=== PATIENT | male | born 1960 | race Caucasian/White ===

== ENCOUNTER → 2018-01-07 06:41 | Outpatient (CLI) | payer BC, SELFPAY ==
--- NOTE | 2018-01-07 11:06 | NEURO ---
NCS and/or EMG Patient Report Ordering Doctor: Wade Arce Jr. DATE OF SERVICE: 01/07/18 This is a bilateral upper extremity nerve conduction study and a right upper extremity EMG performed on this 57-year-old male with hand numbness tingling and pain worse on the right side for approximately 6 months or more. There is no history of neck pain however he does perform repetitive heavy lifting at work. Bilateral upper extremity sensory and motor nerve conduction studies are performed demonstrating moderate prolongation of the left median motor and sensory distal latencies and severe prolongation of the right median motor and sensory distal latencies. The right side also demonstrates mild reduction in amplitude but conduction velocities are normal. The ulnar motor and sensory and radial sensory sponsors bilaterally are preserved. The median F-wave latencies on the right are prolonged to the ulnar F wave latencies bilaterally are normal. Right upper extremity needle electromyography is performed. Muscles evaluated included the first dorsal interosseous, abductor pollicis brevis, brachioradialis, biceps, triceps and deltoid muscles. The abductor pollicis brevis muscle did demonstrate increased amplitude but abnormal insertional activity was not seen. All other muscles demonstrated normal insertional activity with absence of pathologic spontaneous activity. Motor unit potential recruitment pattern and amplitude was normal in all muscles tested. Impression: Abnormal elective his like study of the upper extremities consistent with carpal tunnel syndrome bilaterally, severe on the right side and moderate on the left side
== END ==
PROVIDERS: Family Provider Family Medicine; PCP Family Medicine; Referring Provider Family Medicine; Visit Provider Family Medicine
DX: G56.01 Carpal tunnel syndrome, right upper limb (principal)
CPT/HCPCS: 95886; 95911

== ENCOUNTER 2020-06-27 09:20 | Emergency (ER) | payer BC, SELFPAY ==
[2020-06-27 09:21] VITALS: BP 142/81; PULSE 110; RESP 18; TEMP 36.3; O2SAT 94; BMI 30.9
--- NOTE | 2020-06-27 09:31 | RAD_ITS ---
STUDY: X-RAY CHEST REASON FOR EXAM: Male, 59 years old. Cough TECHNIQUE: Single AP portable view of the chest. COMPARISON: None. FINDINGS: EKG electrodes are seen. There is elevation of the right hemidiaphragm. Minimal increased markings at the lung bases slightly more prominent at the right lung base suggestive of atelectasis and/or early infiltrate. There is no demonstrated pleural abnormality. Normal size heart. Normal mediastinum and caroline. Normal visualized pulmonary arteries. Normal visualized aortic arch and descending thoracic aorta. Normal visualized thoracic spine. Normal visualized ribs, clavicles, and shoulders. There is no demonstrated abnormality of the visualized soft tissue structures of the upper abdomen. RAD/Chest 1 View (Portable) IMPRESSION: Mild increased markings at the lung bases slightly more prominent on the right side suggestive of mild bibasilar atelectasis and/or early infiltrates. Electronically Signed: Yohannes Kaminski MD at 10:23 EDT , Service support ,
--- NOTE | 2020-06-27 09:32 | ED.DCSUM_ITS ---
History of Present Illness Chief Complaint: Cough Informant: Patient Onset: Days Context: Sudden Onset Timing: Intermittent Quality: Upper respiratory infectious symptoms and loss of taste Location: Respiratory Current Severity: Mild Maximum Severity: Moderate Worsened by: Activity Relieved by: Nothing Associated Symptoms: Nausea and vomiting Narrative: Is a 59-year-old male with no significant past medical history on no medication who does not smoke and presents with upper respiratory symptoms that initially started June 19. He states he had congestion and cough for a couple of days with temperature of 99+. He states he felt better for couple days. Last several days he has had mild headache, fever, runny nose, congestion and loss of taste and smell. Patient's was diagnosed with Covid on June 18. He now reports because of increasing respiratory symptoms and dyspnea exertion. He also reports nausea and vomiting. He does feel thirsty and dry mouth. He denies anginal type symptoms. He denies diarrhea. He denies urologic symptoms. He denies any neuro symptoms other than headache and at times feeling foggy . He did notice a rash right shoulder region. He denies discoloration of his fingers or toes. Prior similar symptoms: No Recent Illness/Hospitalization: No - Past Medical History (1) No significant past medical history Status: Acute Past Medical History - Allergies and Home Meds Allergies/Adverse Reactions: Allergies No Known Allergies Allergy (Verified 06/27/20 09:20) Primary Care Physician: Wade Arce III, MD [Primary Care Provider] - Prior records reviewed: Yes Past Medical History: None Surgical History: no surgical history Lives: Spouse/ Significant Other Smoking Status: Never smoker Alcohol: Rare Drugs: None Review of Systems General: Reports: Chills, Fever, Malaise. Denies: Subjective, Sweats Eyes: Denies: Visual changes - bilaterally, Blurred Vision - bilaterally, Diplopia ENT: Reports: Rhinorrhea, Sore throat, - - Of taste/smell. Denies: Bilateral ear pain Cardiovascular: Denies: Chest pain, Palpitations Respiratory: Reports: Dyspnea, Cough, Dyspnea on exertion. Denies: Sputum, Orthopnea, Paroxysmal nocturnal dyspnea Gastrointestinal: Reports: Abdominal pain, Nausea, Vomiting. Denies: Diarrhea, Melena, Hematochezia Genitourinary: Denies: Dysuria, Hematuria, Frequency Musculoskeletal: Reports: Myalgias, Arthralgias. Denies: Neck pain, Back pain, Swelling, Extremity Pain Skin: Reports: Rash. Denies: Abscess, Abrasions, Wounds Neurological: Reports: Headache. Denies: Weakness, Parasthesia, Numbness Endocrine: Denies: Polyuria, Polydipsia Hematologic: Denies: Easy bruising, Easy bleeding Physical Exam Vital Signs/Narrative: Vital Signs Temp Pulse Resp BP Pulse Ox 06/27/20 09:21 97.3 F L 110 H 18 142/81 H 94 Inital Vital Signs reviewed: Yes General: Well nourished, Well developed, No Acute Distress - Appears ill. Eyes: Perrl, EOMI. Negative for: Pale conjunctiva, Scleral icterus ENT: No rhinorrhea, Dry mucous membranes Neck: Supple, Nontender, No lymphadenopathy, No JVD Cardiovascular: Regular rhythm, No murmurs, Normal S1, Normal S2, Tachycardia Respiratory: No distress, Chest nontender, Rales Abdomen: Soft, Nontender, Nondistended, Normal bowel sounds, No masses Back: Nontender, Normal Inspection Extremities: Nontender, No edema Skin: Normal color, No Trauma, Rash - Has folliculitis.. Negative for: Cyanosi s, Diaphoresis, Jaundice Neurological: Alert, Oriented x3, Cranial nerves II-XII grossly intact, Normal Strength, Normal Sensation Psychological: Normal affect, Normal Mood Diagnostic/Tx/Re-eval Chest X-Ray - ED: 1 View, Read by ED Physician - Interpreted by me at 0957. There is slight increased markings which may represent early infiltrate versus atelectasis. Cardiac size and silhouette is normal. Mediastinum is unremarkable. Osseous structures are unremarkable. 06/27/20 09:31 Chest 1 View (Portable) [RAD] Stat - Medical Decision Making With history of exposure to who was diagnosed with Covid and symptoms consistent with Covid patient was placed in Covid isolation. Because he reports nausea and vomiting BMP was obtained to assess anion gap and electrolytes as well as renal function. Covid test was obtained to confirm diagnosis. Patient's finger pulse ox reveals reading of 90%. Will obtain chest x-ray since there is rales to determine if he has Covid pneumonia and if he does we will treat with Decadron. 1 L of normal saline was ordered since he appears dehydrated. Patient did not desaturate with ambulation. Review of orders revealed that the initial Covid test was canceled. Clinically patient has Covid even if his Covid test is negative he has Covid and would presume the test is a false negative. ED Disposition - Plan for ED Patient: Disposition: Home or Assisted Living Diagnosis: Pneumonia due to COVID-19 virus, Nausea and vomiting, Mild dehydration, Sinus tachycardia seen on alarm security or surveillance monitor Instructions: Coronavirus Disease 2019 (COVID-19): Caring for Yourself or Others, ED Vomiting (Adult) Prescriptions: Dexamethasone [Decadron] 6 mg PO DAILY 5 Days #5 tablet Transmission Status: Pending to [id number] Ondansetron [Zofran Odt] 4 mg PO Q8H PRN PRN #10 tablet PRN Reason: Nausea Transmission Status: Pending to [id number] Referrals: Wade Arce III, MD [Primary Care Provider] - As Needed Additional Instructions: You may be ill for another 1+ weeks. You may have residual symptoms for longer. You need to self quarantine for an additional 7 days.
[2020-06-27 10:03] LABS: Absolute Lymphocyte Count 0.46 X10^3/uL (0.83-4.51); Absolute Neutrophil Count 4.6 X10^3/uL (2.0-7.7); Basophil# 0.01 X10^3/uL; Basophil% 0.2 % (0-1); Hematocrit 47.6 % (40-54); Hemoglobin 16.1 g/dL (13.0-16.5); Lymphocyte # 0.46 X10^3/ul (0.83-4.51); Lymphocyte % 8.2 % (19-41); Mean Corp Hgb Conc 33.8 g/dL (32-36); Mean Corpuscular Hgb 28.8 pg (27.0-32.0); Mean Platelet Vol. 9.9 fl (6.2-12.0); Monocyte# 0.54 X10^3/uL; Monocyte% 9.7 % (0-10); NRBC Flagged by Analyzer 0 % (0-5); Neutrophil # 4.55 X10^3/uL (2.7-7.7); Neutrophil % 81.4 % (47-70); POSITIVE DIFFERENTIAL YES; Platelet Count 167 K/mm3 (150-450); RBC Distribution Width CV 13.1 % (11.6-14.6); RBC Distribution Width SD 40.5 fl (35.1-43.9); White Blood Count 5.6 K/mm3 (4.4-11.0)
[2020-06-27 10:04] LABS: Differential Indicated SCAN CRITERIA MET
[2020-06-27 10:16] LABS: Anion Gap 8 (5-15); BUN 14 mg/dL (7-18); BUN/Creat Ratio 14.8 RATIO (10-20); Chloride 103 mmol/L (98-107); Creatinine, Serum 0.95 mg/dL (0.70-1.30); EST Glomerular Filtration Rate 86 mL/min (>60); Est Glom Filt Rate - Afr Amer 105 mL/min (>60); Estimated Creatinine Clearance 78.28 ml/min; Glucose 107 mg/dL (74-106); Potassium 3.7 mmol/L (3.5-5.1); Sodium Level 138 mmol/L (136-145)
[2020-06-27] MEDS: 0.9% Normal Saline 1,000 ML 1000 ML IV (10:18)
[2020-06-27 10:38] VITALS: O2SAT 94
[2020-06-27] MEDS: dexAMETHasone 10 MG/ML Vial IV (11:08)
[2020-06-27 11:12] VITALS: BP 134/78; PULSE 87; RESP 16; TEMP 36.4; O2SAT 96
== END 2020-06-27 11:14 | disposition home or self-care (01) ==
LOC: ED 10:41
PROVIDERS: Emergency Provider Emergency Medicine; PCP Family Medicine
DX: U07.1 COVID-19 (principal); J12.82 Pneumonia due to coronavirus disease 2019; R11.2 Nausea with vomiting, unspecified; E86.0 Dehydration; R00.0 Tachycardia, unspecified
CPT/HCPCS: 71045; 80048; 85025; 87426; 96374; 99284; J7030; A4216

== ENCOUNTER 2021-02-25 10:28 | Emergency (ER) | payer BC, SELFPAY ==
[2021-02-25 10:29] VITALS: BP 164/92; PULSE 94; RESP 18; TEMP 36.2; O2SAT 97; BMI 30.4
--- NOTE | 2021-02-25 10:55 | RAD_ITS ---
HISTORY: fall, pain right ribs and lower back. TECHNIQUE: XR Ribs Unilateral W/ PA Chest Min 3 Views. # of images incl. paperwork: 5. COMPARISON: 06/27/2020. FINDINGS: CARDIOMEDIASTINAL BORDERS: Cardiac silhouette not enlarged.Mediastinal contour unremarkable. LUNGS: Radiographically clear. PLEURA: No pleural effusion or pneumothorax. OSSEOUS STRUCTURES: No acute displaced rib fracture. RAD/Ribs Uni Min 3V w/PA Chest IMPRESSION: No acute abnormality identified. at 1111 Reported and signed by: Jeanie Campbell MD Electronically Signed: Jeanie Campbell MD at 11:10 EST Tel , Service support ,
--- NOTE | 2021-02-25 10:55 | EX.ED.DYSGE1 ---
HPI History of Present Illness Chief Complaint: Fall Narrative Narrative: Patient presenting for evaluation after a fall down stairs. Patient reports that 3 days ago he suffered a mechanical fall down a full flight of stairs. He states that he tumbled down around 14 stairs denies hitting his head or loss of consciousness he is not on any sort of anticoagulants. Patient reports that he was pretty banged up, has some bruising on his left foot but has been able to ambulate, but has noticed continuous pain over his right posterior ribs that is worse with palpation movement and deep breathing. Patient denies any hematuria. Denies any hemoptysis. Pain is sharp. Better with rest. Review of systems otherwise negative. PFSH PFSH Medical History no medical history Home Medications lidocaine [Lidoderm] 1 patch TOPICAL DAILY #15 ea 02/25/21 [Rx Last Taken Unknown] Allergy/AdvReac Type Severity Reaction Status Date / Time No Known Allergies Allergy Verified 02/25/21 10:31 Social History Smoking Status: Never smoker ROS ROS ED Constitutional Constitutional ED: Denies chills or fever(s) ENT ENT ED: Denies rhinorrhea Cardiovascular Cardiovascular: Denies chest pain Respiratory/Chest Respiratory/Chest: Reports other Details: Right posterior rib pain Gastrointestinal Gastrointestinal: Denies abdominal pain, diarrhea, nausea or vomiting Genitourinary Genitourinary ED: Denies dysuria or hematuria Musculoskeletal Musculoskeletal: Reports other Details: Left foot pain Integumentary Denies rash Neurologic Neurologic: Denies paresthesias or weakness Psychiatric Psychiatric: Denies depression Endocrine Endocrinology: Denies fatigue Allergic/Immunologic Allergic/Immunologic ED: Denies urticaria EXAM Physical Exam Const Vital Signs: 02/25/21 10:29 02/25/21 10:34 Temperature 97.1 F L Temperature Source Temporal Pulse Rate 94 Respiratory Rate 18 Respiratory Effort Normal Non-Labored Blood Pressure 164/92 H Blood Pressure Mean 116 Pulse Ox 97 Oxygen Delivery Method Room Air Room Air Positive well nourished and well developed Constitutional Narrative: Airway patent, breath sounds equal bilateral, 2+ radial pulses bilaterally symmetric GCS 15 out of 15. General Appearance ED: well developed and NAD HEENT Reports moist mucous membranes Negative for trauma or tenderness Eyes EOMs intact bilaterally Neck no lymphadenopathy, supple and no JVD Neck Narrative: No midline tenderness is noted, no step-offs Chest Wall Chest Narrative: Right posterior chest does have some bruising, there is tenderness to palpation over the inferior portion of the thoracic wall. No signs of abnormal chest excursion no crepitus no evidence of flail chest. Resp normal respiratory effort and clear to auscultation bilaterally Cardio regular rate, regular rhythm, no murmurs and peripheral pulses 2+ throughout GI normal to inspection, nondistended, normoactive bowel sounds, non-tender and no masses Palpation: soft Back/Spine normal to inspection Extremity Extremity Narrative: Bruising noted over the patient's fourth and fifth toes on the left foot, normal range of motion of the toes and foot, no pain of the ankle. Normal distal sensation and pulses. Neuro oriented x3 and no sensory deficits noted Sensorium / Orientation: alert Motor Exam: strength 5/5 throughout Psych mental status grossly normal Skin no rashes or lesions noted MDM MDM MDM Narrative Medical decision making narrative: Patient presented secondary to a fall. He does have some bruising his foot but is easily able to bear weight, no radiographs ordered. Radiographs of the ribs were obtained and per my personal review as well as radiology are noted to be negative. Patient at this point likely has rib contusions he will be provided with a incentive spirometer. Patient was educated on signs symptoms which to return. To be discharged with a course of lidocaine patches. Patient was discharged in stable condition. Radiography Diagnostic Testing: Clinical Impression(s) from Imaging Studies Ribs w/Chest X-Ray 02/25/21 10:55 IMPRESSION: No acute abnormality identified. at 1111 Reported and signed by: Jeanie Campbell MD Electronically Signed: Jeanie Campbell MD at 11:10 EST Tel , Service support , Discharge Plan Triage Chief Complaint: Fall ED Provider: Malik Latif Dx/Rx/DC Orders Clinical Impression: Contusion of rib on right side Instructions: ED Chest Wall Contusion Prescriptions: New lidocaine [Lidoderm] 5 % adhesive patch,medicated 1 patch topical DAILY Qty: 15 RF: 0 Primary Care Provider: Cosme Jimenez Referrals: Cosme Jimenez MD [Primary Care Provider] - As Needed Disposition Disposition: Home, Self Care
== END 2021-02-25 11:58 | disposition home or self-care (01) ==
PROVIDERS: Emergency Provider Emergency Medicine; PCP Family Medicine
DX: S20.211A Contusion of right front wall of thorax, initial encounter (principal); W10.9XXA Fall (on) (from) unspecified stairs and steps, initial encounter
CPT/HCPCS: 71101; 99282

== ENCOUNTER → 2021-08-29 | Outpatient (CLI) | payer BC, SELFPAY ==
--- NOTE | 2021-08-29 13:00 | CDU_ITS ---
Reason For Study: Visual disturbance Rt. Velocities/BP Lt. Velocities/BP Prox CCA 94.3/25.2 cm/sec. Prox CCA 122.9/26.1 cm/sec. Mid CCA 98.2/27.8 cm/sec. Mid CCA 121.1/27.9 cm/sec. Dist CCA 90.4/26.5 cm/sec. Dist CCA 121.1/37.1 cm/sec. Prox ICA 90/29.8 cm/sec. Prox ICA 84.6/29.8 cm/sec. Mid ICA 121.1/42.6 cm/sec. Mid ICA 99.2/35.3 cm/sec. Dist ICA 130.2/42.6 cm/sec. Dist ICA 113.8/42.6 cm/sec. Rt. ICA/CCA = 1.38. Lt. ICA/CCA = 0.94. Prox ECA 169.6/22.6 cm/sec. Prox ECA 128.4/22.5 cm/sec. Rt. Vert. 64.5/17 cm/sec. Lt. Vert. 43.2/12.4 cm/sec. Right Extracranial There is intimal thickening but no significant atherosclerotic plaque noted in the right common carotid artery. There is intimal thickening but no significant atherosclerotic plaque noted in the right internal carotid artery. There is intimal thickening but no significant atherosclerotic plaque noted in the right external carotid artery. Antegrade flow is noted in the right vertebral artery. Left Extracranial There is intimal thickening but no significant atherosclerotic plaque noted in the left common carotid artery. There is heterogeneous, smooth atherosclerotic plaque noted in the left internal carotid artery. There is intimal thickening but no significant atherosclerotic plaque noted in the left external carotid artery. Antegrade flow is noted in the left vertebral artery. Procedure Carotid Duplex [id number]. This is a Carotid Duplex examination using B-mode, color flow and specral Doppler. Exam performed in department. VL/Carotid Duplex Ultrasound Interpretation Summary Intimal thickening at the proximal right internal carotid artery with slightly increased velocity in the mid and distal internal carotid artery though not associated with any visib le plaque. Technically consistent with 50 to 69% stenosis. Less than 50% stenosis right external carotid artery Heterogenous plaque at the proximal left internal carotid artery with less than 50% stenosis Less than 50% stenosis left external carotid artery Patent and antegrade vertebral arteries bilaterally Ordering Physician: Jensen Griffith Referring Physician: Nathaniel Jimenez Performed By: Jenni Gould RVT
== END | disposition home or self-care (01) ==
LOC: CVS 12:57
PROVIDERS: PCP Family Medicine; Referring Provider Ophthalmology; Visit Provider Ophthalmology
DX: H53.15 Visual distortions of shape and size (principal); H53.121 Transient visual loss, right eye
CPT/HCPCS: 93880

== ENCOUNTER → 2023-03-12 | Outpatient (CLI) | payer BC, SELFPAY ==
--- NOTE | 2023-03-12 10:32 | MRI_ITS ---
STUDY: MRI BRAIN WITH AND WITHOUT CONTRAST (ATTENTION INTERNAL AUDITORY CANALS - I.A.C.''s) REASON FOR EXAM: Male, 62 years old. RINGING IN EARS, CONSTANT [id number], HAS HAD TRIGEMINAL NEURALGIA [id number], 19CC CLARISCAN LEFT EAR TINNITUS TECHNIQUE: Standardized multiplanar fat and water weighted pulse sequences were obtained. ml of 19cc clariscan contrast material was administered intravenously for the contrast portion of the examination. COMPARISON: None. FINDINGS: Normal bilateral temporal bones. Normal bilateral internal auditory canals. There is no demonstrated intracanalicular or cisternal vestibular schwannoma ( acoustic neuroma ). There is no enhancement of the bilateral VIIth or VIIIth cranial nerves. Normal bilateral cochlea, vestibules and semicircular canals. No demonstrated mastoid air cell opacification. No cerebellar pontine angle mass or cyst is present. Normal Meckel''s cave and nerve roots. No extra-axial mass is seen. No demonstrated Mondini''s malformation. There is mild cerebral atrophy with widening of the extra-axial spaces and ventricular dilatation. There are a limited number of small white matter hyperintensities, distributed throughout the deep white matter tracts of the cerebral hemispheres, consistent with mild chronic white matter ischemic changes. There is no evidence for recent intracranial ischemia or other cause of cytotoxic edema on diffusion weighted imaging (DWI). Normal T2* images of the brain without demonstrated susceptibility artifact. There is no demonstrated hemosiderin stain. There are no demyelinating plagues of the supratentorial brain, brainstem or cerebellum. There are no findings suspicious for multiple sclerosis (MS). Normal bilateral basal ganglia. Normal thalami. Normal flow voids within the major intracranial circulation suggesting patency by spin echo criteria. Normal venous enhancement. There is no enhancing intra-axial or extra-axial abnormality. There is no extra-axial fluid accumulation. Normal sella turcica, pituitary gland, infundibular stalk, optic chiasm and hypothalamus. Normal tectal plate and pineal gland. Normal midbrain, karl and medulla. Normal cerebellum. Normal basal cisterns. No demonstrated orbital abnormality, within the constraints of a routine brain study. Normal visualized paranasal sinuses. Normal calvarium and skull base. Normal visualized soft tissue structures. Normal visualized upper cervical spine. MRI/Brain W/WO Contrast IMPRESSION: 1. Normal unenhanced and enhanced MRI of the bilateral internal auditory canals (I.A.C''s). 2. No demonstrated mastoid air cell opacification. No cerebellar pontine angle mass or cyst is present. Normal Meckel''s cave and nerve roots. No extra-axial mass is seen. No demonstrated Mondini''s malformation. Electronically Signed: Rasheed Raphael MD at 15:14 EST ,
--- OUTSIDE RECORDS SUMMARY | 2023-03-12 10:46 | XMS RPT_ITS | CCD ---
Author Name Unknown Address [address] [facility] [address] [facility] [address] [place] [address] Organization [facility] Care Team Providers Care Offal Separator Name Role Phone SARA PAUL Unavailable Unavailable SARA PAUL Unavailable Unavailable Nathaniel Jimenez MD Primary Care Provider Medications Completed/Discontinued Medications Medication Drug Class(es) Dates Sig (Normalized) Sig (Original) sildenafil 50 mg oral tablet (1 source) Phosphodiesterase 5 Inhibitor Start: 11-02-2019 sildenafil (VIAGRA) 50 mg tablet use as needed 6 tablet 5 11/02/2019 Active Problems Active Problems Problem Classification Problem Date Documented Da te Episodic/Chronic Disorders of lipid metabolism (1 source) Hyperlipidemia; Translations: [Hyperlipidemia, unspecified] Onset: 10-17-2015 10-17-2015 Chronic Immunizations and screening for infectious disease (1 source) Vaccination needed; Translations: [Encounter for immunization] Episodic Other male genital disorders (1 source) Secondary erectile dysfunction; Translations: [Male erectile dysfunction, unspecified] Onset: 03-28-2018 03-28-2018 Chronic Other nervous system disorders (1 source) Carpal tunnel syndrome, bilateral upper limbs; Translations: [Carpal tunnel syndrome, bilateral upper limbs] Onset: 01-27-2018 Other nutritional; endocrine; and metabolic disorders (1 source) Obesity; Translations: [Other obesity due to excess calories] 10-25-2020 Chronic Past or Other Problems Problem Classification Problem Date Documented Da te Episodic/Chronic Other nutritional; endocrine; and metabolic disorders (1 source) Body mass index 25-29 - overweight; Translations: [Overweight] Onset: 06-12-2012 06-12-2012 Episodic Results Test Name Value Interpretation Reference Range Facil ity Encounters Encounter Date Encounter Type Care Provider Facility Start: 06-06-2021 End: 06-06-2021 Nursing evaluation of patient and report Mi Nurse Work Phone: [facility] [place] Procedures Date Procedure Procedure Detail Performing Clinician Start: 10-23-2020 Adult depression scr eening assessment Ny Nurse Work Phone: Start: 12-31-2016 Colonoscopy Ny Nurse Work Phone: Plan of Treatment Date Care Activity Detail Author Start: 12-31-2026 Colonoscopy COLONOSCOPY [facility] Start: 12-31-2026 COLORECTAL CANCER SCREENING COLORECTAL CANCER SCREENING [facility] Start: 10-29-2025 LIPID SCREEN LIPID SCREEN [facility] Start: 02-01-2024 PROSTATE CANCER SCRE ENING DISCUSSION PROSTATE CANCER SCREENING DISCUSSION [facility] Start: 10-30-2023 DIABETES SCREEN DIABETES SCREEN [facility] Start: 10-25-2021 COVID-19 VACCINE (1) COVID-19 VACCIN E (1) [facility] Immunizations Immunization Date Immunization Notes Care Provider Fa cility 06-06-2021 zoster vaccine recombinant Ny Nurse Work Phone: [facility] Work Phone: 03-13-2021 zoster vaccine recombinant Ny Nurse Work Phone: [facility] Work Phone: 07-17-2011 tetanus toxoid, redu montez diphtheria toxoid, and acellular pertussis vaccine, adsorbed Ny Nurse Work Phone: [facility] Payers Date Payer Category Payer Unknown [employer] BLUE CARD PPO OOS [id number] 2012-Present [phone] [id number] [place] [address] PPO [id number] Social History Date Type Detail Facility Start: 08-05-2013 Tobacco smoking stat us NHIS Never smoked tobacco [facility] History of tobacco use Cigarette Smoker C [facility] Start: 08-05-2013 End: 10-25-2020 Cigarettes smoked current (pack per day) - Reported 0.3 [facility] Start: 08-05-2013 Tobacco use and exposure Filemon r smokeless tobacco user [facility] History of tobacco use Chews Tobacco [facility] Start: 10-25-2020 Alcohol intake Current drinke r of alcohol (finding) [facility] Start: 10-23-2020 History SDOH Alcohol Frequency 3 [facility] Start: 10-23-2020 History SDOH Alcohol Std Drinks 2 [facility] Start: 10-25-2020 History SDOH Alcohol Comment 4-5 drinks on the weekend [facility] Start: 10-23-2020 History SDOH Social Connections Phone 5 [facility] Start: 10-23-2020 History SDOH Social Connections Jain 1 [facility] Start: 10-23-2020 History SDOH Physica l Activity MPS 4 [facility] Start: 10-23-2020 Education 14 [facility] Start: 1960 Sex Assigned At Male C [facility] Start: 05-13-2021 End: 05-23-2021 Exposure to SARS-CoV-2 (event) Not sure [facility] Progress note 06-06-2021 Note Date & Type Note Facility 06-06-2021 Note HNO ID: [id number] Author: Isabel Clark LPN Service: ? Author Type: ? Type: Progress Notes Filed: 06/06/2021 3:43 PM Note Text: Patient presents for Shingrix vaccine. Denies any problems at this time. Tolerated injection well. Isabel Clark LPN [facility] History of Present illness Narrative 06-06-2021 Isabel Clark LPN - 06/06/2021 3:42 PM EDT Note Date & Type Note Facility 06-06-2021 History of Presen t illness Narrative Patient presents for Shingrix vaccine. Denies any problems at this time. Tolerated injection well. Isabel Clark LPN documented in this encounter [facility] Progress note 03-13-2021 Note Date & Type Note Facility 03-13-2021 Note HNO ID: [id number] Author: Isabel Clark LPN Service: ? Author Type: ? Type: Progress Notes Filed: 03/13/2021 3:46 PM Note Text: Patient presents for Shingrix vaccine. Denies any problems at this time. Tolerated injection well. Isabel Clark LPN [facility] Progress note 12-30-2020 Note Date & Type Note Facility 12-30-2020 Note HNO ID: [id number] Author: Nancy Kenyon Population Health Navigator Service: ? Author Type: ? Type: Progress Notes Filed: 12/30/2020 3:34 PM Note Text: POPULATION HEALTH NAVIGATION OUTREACH Action/ I updated patient chart No care everywhere Contact made with patient or family member? NO Pt identified by name and : NO Outreach Outcome/Action PCP field updated Reason for Outreach Attribution: Provider Off-boarding Payer: Payor: JAVIER / Plan: BLUE CARD PPO OOS / Product Type: PPO / Care Gap Reviewed:: Reminder: Reminder note to check Health Maintenance for items below Health Maintenance items due: HIV SCREENING Never done SHINGRIX VACCINE(1 of 2) Never done Advanced Directives Completed: Have you ever planned for future healthcare decisions with a power of contracts attorney, living will, or advance directives? No. Please bring a copy to your next appointment or email to [email or web address] Referrals: N/A Message Sent to Practice: NO Navigation Signature: Nancy Kenyon Population Health Navigator December 30, 2020 3:33 PM [facility] Clinical Note 12-30-2020 Note Date & Type Note Facility 12-30-2020 Note Patient Outreach (NE TNAV) DIEGO MATUTE ([id number]) 1960 M Date Time Provider Department 12/30/20 NANCY KENYON During your visit today, we recorded the following information about you: Nancy Kenyon Population Health Navigator 12/30/2020 3:34 PM Signed POPULATION HEALTH NAVIGATION OUTREACH Action/ I updated patient chart No care everywhere Contact made with patient or family member? NO Pt identified by name and : NO Outreach Outcome/Action PCP field updated Reason for Outreach Attribution: Provider Off-boarding Payer: Payor: JAVIER / Plan: BLUE CARD PPO OOS / Product Type: PPO / Care Gap Reviewed:: Reminder: Reminder note to check Health Maintenance for items below Health Maintenance items due: HIV SCREENING Never done SHINGRIX VACCINE(1 of 2) Never done Advanced Directives Completed: Have you ever planned for future healthcare decisions with a power of contracts attorney, living will, or advance directives? No. Please bring a copy to your next appointment or email to [email or web address] Referrals: N/A Message Sent to Practice: NO Navigation Signature: Nancy Kenyon Population Health Navigator December 30, 2020 3:33 PM Allergies As of Date: 12/30/2020 (No Known Allergies) Date Reviewed: 10/25/2020 Reviewed by: Fidel Kc Ma - Fully Assessed Reason for Visit: Population Health Navigation Outreach [3910] Cmt: Offboarding Prescriptions as of 12/30/2020 - sildenafil (VIAGRA) 50 mg tablet use as needed Problem List As Of Date 12/30/2020 Noted Resolved Plantar fasciitis of right foot [M72.2] 06/12/2012 08/09/2014 Achilles tendinitis [M76.60] 06/12/2012 08/09/2014 Overweight (BMI 25.0-29.9) [E66.3] 06/12/2012 Tobacco abuse [Z72.0] 06/12/2012 10/17/2015 Hyperlipidemia LDL goal <130 [E78.5] 10/17/2015 Metatarsalgia of right foot [M77.41] 12/31/2017 11/02/2019 Cervical strain, acute, sequela [S16.1XXS] 12/31/2017 11/02/2019 Cervical radiculopathy [M54.12] 12/31/2017 11/02/2019 Carpal tunnel syndrome, right [G56.01] 12/31/2017 11/02/2019 Bilateral carpal tunnel syndrome [G56.03] 01/27/2018 11/02/2019 ED (erectile dysfunction) of organic origin [N5*03/28/2018 Class 1 obesity due to excess calories without * Encounter Status:Closed by KOSTAS POPULATION HEALTH NAVIGATORNANCY on 12/30/20 [facility] Progress note 10-25-2020 Note Date & Type Note Facility 10-25-2020 Note HNO ID: [id number] Author: Nathaniel Jimenez MD Service: ? Author Type: Physician Type: Progress Notes Filed: 10/25/2020 4:45 PM Note Text: Chief Complaint Patient presents with: transfering care from Dr. Yazmin KNAPP Diego Matute is a 59 year old male who presents here today for Above Complaints. No questions or concerns today. Has not had hospitalizations or ER visit since COVID infection in June. Has history of erectile dysfunction which has been treated with viagra 50 mg PRN. States he has not noticed much difference the last couple times he tried it. Has been able to be intimate with his without issues in the last few months. BP elevated on initial check. Normal in the past. Nervous about meeting a new physician today. Admits to drinking 2 cans of pop per day and drinking 4-5 beers on Saturday and Saturday. 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 Patient has not been vaccinated for COVID. Refusing today. Discussed risks and benefits of vaccination and risks if he does not get vaccinated. Past medical history, appointments, medications, allergies reviewed. Previous Medical History PAST MEDICAL HISTORY Diagnosis Date - Class 1 obesity due to excess calories without serious comorbidity with body mass index (BMI) of 31.0 to 31.9 in adult - History of COVID-19 06/2020 - Hyperlipidemia LDL goal <130 10/17/2015 - Other male erectile dysfunction - Tobacco abuse 06/12/2012 Previous Surgical History PAST SURGICAL HISTORY Procedure Laterality Date - COLONOSCOP W/ OR W/O BRSH SPEC 12/31/2016 repeat 10 years - EXTRACTION ERUPTED TOOTH [place] teeth - REVISE MEDIAN N/CARPAL TUNNEL SURG Bilateral 02/28/2018 Bilateral carpal tunnel release Family History FAMILY HISTORY Problem Relation Age of Onset - No Known Problems Mother - other (unknown) Father - No Known Problems Sister - Diabetes Maternal Grandmother - No Known Problems Maternal Grandfather - No Known Problems Paternal Grandmother - No Known Problems Paternal Grandfather - No Known Problems Daughter - No Known Problems Son Patient Allergies ALLERGIES No Known Allergies Current Medications Current Outpatient Medications on File Prior to Visit Medication Sig - sildenafil (VIAGRA) 50 mg tablet use as needed No current facility-administered medications on file prior to visit. Social History Social History Tobacco Use - Smoking status: Never Smoker - Smokeless tobacco: Former User Types: Chew Substance Use Topics - Alcohol use: Yes Alcohol/week: 10.0 standard drinks Types: 10 Cans of Beer (12oz) per week Comment: 4-5 drinks on the weekend - Drug use: No Review of Symptoms REVIEW OF SYSTEMS GENERAL: No weight loss, malaise or fevers HEENT: Negative for frequent or significant headaches, No changes in hearing or vision, no nose bleeds or other nasal problems NECK: Negative for lumps, goiter, pain and significant neck swelling RESPIRATORY: Negative for cough, hemoptysis, wheezing, COPD, dyspnea or shortness of breath CARDIOVASCULAR: Negative for chest pain, leg swelling, hypertension, CHF or palpitations GI: No nausea, vomiting, or diarrhea : No history of dysuria, frequency or incontinence, No difficulty urinating, nocturia > 1 time per night or hematuria MUSCULOSKELETAL: Negative for joint pain or swelling, back pain or muscle pain SKIN: lesion on right forehead above eyebrow that repeatedly bleeds. Increasing in size. EXAM: BP 150/96 Pulse 74 Resp 16 Ht 168.5 cm (5' 6.34 ) Wt 90.7 kg (200 lb) SpO2 97% BMI 31.95 kg/m? General Appearance: Well appearing, alert, in no acute distress, well-hydrated, well nourished.. Skin: raised skin colored lesion on right forehead with scabbing on superior edge. Possible BCC. Head: Normocephalic, no masses, lesions, tenderness or abnormalities. Eyes: Anicteric sclera. Pupils are equally round and reactive to light. Extraocular movements are intact. . Ears: External ears normal, canals clear. Neck: Supple, no adenopathy; thyroid symmetric, normal size, no bruits. Lungs: Lungs clear to auscultation. No wheezing, rhonchi, rales.. Heart: RRR without murmur, gallop, or rubs. No ectopy. Abdomen: Normal abdominal exam, Abdomen soft, non-tender. Bowel sounds normal. No masses, organomegaly. Extremities: No deformities, edema, skin discoloration, clubbing or cyanosis. Good capillary refill. Genital: deferred. Health Maintenance List HIV SCREENING due on 11/01/2020 SHINGRIX VACCINE(1 of 2) due on 11/01/2020 COVID-19 VACCINE(1) due on 10/25/2021 DTAP,TDAP,TD(2 - Td or Tdap) due on 07/16/2021 DEPRESSION SCREENING due on 10/23/2021 DIABETES SCREEN due on 01/31/2022 LIPID SCREEN due on 02/01/2024 PROSTATE CANCER SCREENING DISCUSSION due on 02/01/2024 COLORECTAL CANCER SCREENING due on 12/31/2026 HEPATITIS C SCREENING Completed MENINGOCOCCAL CONJUGATE Aged Out INFLUENZA Discontinu (more content not included)... [facility] History of Past illness Narrative 01-27-2018 Note Date & Type Note Facility documented as of this encounter (statuses as of 06/06/2021) [facility] Evaluation note Note Date & Type Note Facility documented in this encounter [facility] Summary Purpose Family History No Family History Records FoundNo Family History Records Found Advance Directives No Advanced Directives Records FoundDocuments on File Type Date Recorded Patient Machinist/Machine Builder Expl anation Advance Directive(s) 02/28/2018 7:13 AM Advance Directive(s) 02/04/2018 5:55 PM Advance Directive(s) 12/31/2016 2:24 PM Additional Source Comments (unrecognized sect ion and content) No Status Records FoundNo Status Records Found INFORMATION SOURCE (unrecogn ized section and content) DATE CREATED AUTHOR AUTHOR'S ORGANIZ ATION 06/08/2021 [facility] Source Comments (unrecognize d section and content) In the event this informatio n is protected by the Federal Confidentiality of Alcohol and Drug Abuse Patient Records regulations: The Federal rules restrict any use of the information to criminally investigate or prosecute any alcohol or drug abuse patient.[facility] Reason for Visit (unrecogniz ed section and content) Care Teams (unrecognized sec tion and content) FOR RECORDS PERTAINING TO PATIENTS WHO ARE OR HAVE BEEN ENROLLED IN A CHEMICAL DEPENDENCY/SUBSTANCEABUSE PROGRAM, SOME INFORMATION MAY BE OMITTED. This clinical summary was aggregated from multiple sources. Caution should be exercised in using it in the provision of clinical care. This summary normalizes information from multiple sources, and as a consequence, information in this document may materially change the coding, format and clinical context of patient data. In addition, data may be omitted in some cases. CLINICAL DECISIONS SHOULD BE BASED ON THE PRIMARY CLINICAL RECORDS. [facility]. provides no warranty or guarantee of the accuracy or completeness of information in this document.
[2023-03-12 10:58] LABS: CREATININE FINGERSTICK 1.2 mg/dL (0.70-1.30); EGFR FINGERSTICK > 60.0000 mL/min (>60)
== END | disposition home or self-care (01) ==
PROVIDERS: PCP Family Medicine; Referring Provider Otolaryngology; Visit Provider Otolaryngology
DX: H93.12 Tinnitus, left ear (principal)
CPT/HCPCS: 70553; A9575

== ENCOUNTER → 2024-12-12 | Outpatient (CLI) | payer BC, SELFPAY ==
--- OUTSIDE RECORDS SUMMARY | 2024-12-12 09:27 | XMS RPT_ITS | CCD ---
Author Organization [facility] Care Team Providers Care Clinical Specialist Vascular Name Role Phone SARA PAUL Unavailable Unavailable SARA PAUL Unavailable Unavailable Deja Jimenez MD Primary Care Provider Dr. Cosme Jimenez Primary Care Provider Dr. Fredi Arce Attending Provider Fredi Arce Attending Unavailable Cosme Jimenez Referring Unavailable Cosme Jimenez Primary Care Unavailable Fredi Arce Attending Unavailable Jensen Griffith Referring Unavailable Cosme Jimenez Primary Care Unavailable Jensen Griffith Referring Unavailable Jensen Griffith Attending Unavailable Cosme Jimenez Primary Care Unavailable Malik Latif Attending Unavailable Cosme Jimenez Primary Care Unavailable Cosme Jimenez Primary Care Unavailable Fredi Arce Attending Unavailable Podlogar MEDICAL CLAIMS PROCESSORAdela OLVERA Unavailable Medications Current Medications Medication Drug Class(es) Dates Sig (Normalized) Sig (Original) lidocaine 0.05 mg/mg medicated patch (1 source) Antiarrhythmic, Amide Local Anesthetic Start: 02-25-2021 apply 1 dose topically once daily Lidocaine (Lidoderm) 5 % adhesive patch,medicated Active 1 PATCH TOPICAL DAILY February 25, 2021 1:00am leave on most painful area for up to 12 hrs sildenafil 50 mg oral tablet (2 sources) Phosphodiesterase 5 Inhibitor Start: 11-02-2019 sildenafil (VIAGRA) 50 mg tablet use as needed 6 tablet 5 11/02/2019 Active Comment on above: use as needed Problems Active Problems Problem Classification Problem Date Documented Da te Episodic/Chronic Cardiac dysrhythmias (1 source) ECG: sinus tachycardia; Translations: [Tachycardia, unspecified] Episodic Disorders of lipid metabolism (2 sources) Hyperlipidemia; Translations: [Hyperlipidemia, unspecified] Onset: 10-17-2015 10-17-2015 Chronic Fluid and electrolyte disorders (1 source) Mild dehydration; Translations: [Dehydration] Episodic Immunizations and screening for infectious disease (1 source) Vaccination needed; Translations: [Encounter for immunization] Episodic Nausea and vomiting (1 source) Nausea and vomiting; Translations: [Nausea with vomiting, unspecified] Episodic Occlusion or stenosis of precerebral arteries (1 source) Occlusion and stenosis of right carotid artery; Translations: [Occlusion and stenosis of right carotid artery] Onset: 09-13-2021 Chronic Other male genital disorders (2 sources) Secondary erectile dysfunction; Translations: [Male erectile dysfunction, unspecified] Onset: 03-28-2018 03-28-2018 Chronic Other nervous system disorders (1 source) Carpal tunnel syndrome, bilateral upper limbs; Translations: [Carpal tunnel syndrome, bilateral upper limbs] Onset: 01-27-2018 Other nutritional; endocrine; and metabolic disorders (1 source) Obesity; Translations: [Other obesity due to excess calories] 10-25-2020 Chronic Other nutritional; endocrine; and metabolic disorders (1 source) Obesity caused by energy imbalance; Translations: [Class 1 obesity due to excess calories without serious comorbidity with body mass index (BMI) of 31.0 to 31.9 in adult] 10-25-2020 Chronic Superficial injury; contusion (1 source) Contusion of rib; Translations: [Contusion of right front wall of thorax, initial encounter] Episodic Unclassified (1 source) No history of clinical finding in subject; Translations: [No significant past medical history] Viral infection (1 source) COVID-19; Translations: [Pneumonia due to COVID-19 virus] Episodic Past or Other Problems Problem Classification Problem Date Documented Date Episodic/Chronic Blindness and vision defects (2 sources) Unspecified visual disturbance; Translations: [Visual distortions of shape and size] Onset: 08-31-2021 Episodic Other connective tissue disease (1 source) Plantar fasciitis of right foot; Translations: [Plantar fascial fibromatosis] Onset: 06-12-2012 Resolved: 08-09-2014 08-09-2014 Episodic Other connective tissue disease (1 source) Achilles tendinitis; Translations: [Achilles tendinitis, unspecified leg] Onset: 06-12-2012 Resolved: 08-09-2014 08-09-2014 Episodic Other connective tissue disease (1 source) Metatarsalgia of right foot; Translations: [Metatarsalgia, right foot] Onset: 12-31-2017 Resolved: 11-02-2019 11-02-2019 Episodic Other lower respiratory disease (1 source) Pleurodynia; Translations: [R07.81 - Pleurodynia] Onset: 03-01-2021 Episodic Other nervous system disorders (1 source) Carpal tunnel syndrome of right wrist; Translations: [Carpal tunnel syndrome, right upper limb] Onset: 12-31-2017 Resolved: 11-02-2019 11-02-2019 Chronic Other nervous system disorders (1 source) Bilateral carpal tunnel syndrome; Translations: [Carpal tunnel syndrome, bilateral upper limbs] Onset: 01-27-2018 Resolved: 11-02-2019 11-02-2019 Chronic Other nutritional; endocrine; and metabolic disorders (2 sources) Body mass index 25-29 - overweight; Translations: [Overweight] Onset: 06-12-2012 06-12-2012 Episodic Residual codes; unclassified (1 source) Tobacco user; Translations: [Tobacco use] Onset: 06-12-2012 Resolved: 10-17-2015 10-17-2015 Episodic Spondylosis; intervertebral disc disorders; other back problems (1 source) Cervical radiculopathy; Translations: [Radiculopathy, cervical region] Onset: 12-31-2017 Resolved: 11-02-2019 11-02-2019 Episodic Sprains and strains (1 source) Strain of neck muscle; Translations: [Strain of muscle, fascia and tendon at neck level, sequela] Onset: 12-31-2017 Resolved: 11-02-2019 11-02-2019 Episodic Results Test Name Value Interpretation Reference Range Facility [facility] ALFRED CASTRO ([id number]) 1960 Date Time Provider Department 02/27/24 DEJA JIMENEZ During your visit today, we recorded the following information about you: Deja Jimenez MD 02/27/2024 12:38 PM Signed Patient was in today with for her appointment with Adela Manrique and was asking about re-establishing with me and getting a physical. He stated he did not want to see me and only wanted to see Adela in the future because he was upset at his last OV 10/2020 that we discussed COVID vaccination and he felt I was forcing him to get it, though he refused vaccination and we did not administer the vaccine per his wishes. I discussed with him that I am not taking new patients at this time and if he is not wanting to see me anyway, he would be better suited to find a new provider. Adela Manrique does not have her own patient panel and he would not be able to solely see her. He stated his is considering transferring care as well, but she did not agree to this while I was in the room. Removed myself as PCP. Allergies As of Date: 02/27/2024 (No Known Allergies) Date Reviewed: 10/25/2020 Reviewed by: Fidel Kc (Amparo) - Fully Assessed Reason for Visit: Patient Update [1234] Prescriptions as of 02/27/2024 - sildenafil (VIAGRA) 50 mg tablet use as needed Problem List As Of Date 02/27/2024 Noted Resolved Plantar fasciitis of right foot [...] excess calories without * Encounter Status:Closed by DEJA JIMENEZ on 02/27/24 [facility] Surgery Visit Reporton 09-13 Surgery Visit Report [facility] [address] [place] [address] OFFICE VISIT Date of Service: 09/13/21 MR#: [id number] Acct: [id number] Name: ALFRED CASTRO Rep #: [id number] : 1960 Provider: Dr. Fredi holguin MD Age/Sex: 60/M Location: [facility] Status: Signed Intake Vital Signs 09/13/21 14:33 Height 5 ft 8 in Weight: 202 lb BMI 30.7 BP 137/85 H Blood Pressure Location Rt brachial Position Sitting Respiration 16 Pulse 85 Pulse Source Monitor Temp 98.2 F Temp Source Temporal Pulse Oximetry (%) 97 Oxygen Delivery Method room air Intake Visit Reasons: RIGHT CAROTID STENOSIS Chief Complaint: Right carotid stenosis, Carotid duplex 08/29 Supervisor Dehydrogenation Required: No Is patient in pain?: No Allergies No Known Allergies Allergy (Verified 09/13/21 14:34) Medications lidocaine 5 % topical patch (Lidoderm) 1 patch topical DAILY #15 ea 02/25/21 [Rx Confirmed 09/13/21] PFSH Social History (Updated 09/13/21 @ 14:33 by Lynda Paulino) Smoking Status: Never smoker alcohol intake: never substance use type: does not use HPI HPI HPI: ALFRED CASTRO, is a 60 M who presents to the office today for surgical consultation regarding extracranial carotid artery occlusive disease. The patient is referred by Dr. Jensen Griffith and a written copy of my surgical consult recommendations will return to him. By report the patient has had some right visual disturbances and is identified as having a degree of right carotid stenosis. The patient is concerned with seeing spider webs in his vision in his right eye with wavy line episodes. Occurs approximately once a week. Apparently the patient's had a previous right retinal detachment with current findings suggesting stability. The patient had carotid duplex imaging on August 29, 2021. Peak systolic velocity within the proximal right internal carotid was normal at 90 cm/s flow and in the mid internal carotid normal 121 cm second peak systolic flow. Only within the distal right internal carotid was at 130 cm/s peak sac flow and there was no hemodynamically significant plaque identified. By velocity evaluation this was felt to be consistent with 50 to 69% stenosis. There is felt to be less than 50% stenosis of the left internal carotid. Note that the patient states that his right eye symptoms have been ongoing for 2 years. Perhaps slightly increased in frequency. In the past he was noted to have questionable diagnosis of ocular migraine. He denies classic TIA or CVA. He has never required a cardiac stress test. He is able to climb a flight of stairs. He goes hunting and climbs hills. No calf claudication. No dyspnea on exertion. His primary care physician is Dr. Deja Jimenez Reason For Study: Visual disturbance Rt. Velocities/BP ? Lt. Velocities/BP Prox CCA 94.3/25.2 cm/sec.? Prox CCA 122.9/26.1 cm/sec. Mid CCA 98.2/27.8 cm/sec. ? Mid CCA 121.1/27.9 cm/sec. Dist CCA 90.4/26.5 cm/sec.? Dist CCA 121.1/37.1 cm/sec. Prox ICA 90/29.8 cm/sec.? Prox ICA 84.6/29.8 cm/sec. Mid ICA 121.1/42.6 cm/sec.? Mid ICA 99.2/35.3 cm/sec. Dist ICA 130.2/42.6 cm/sec. ? Dist ICA 113.8/42.6 cm/sec. Rt. ICA/CCA = 1.38. ? Lt. ICA/CCA = 0.94. Prox ECA 169.6/22.6 cm/sec. ? Prox ECA 128.4/22.5 cm/sec. Rt. Vert. 64.5/17 cm/sec. ? Lt. Vert. 43.2/12.4 cm/sec. Right Extracranial There is intimal thickening but no significant atherosclerotic plaque noted in the right common carotid artery. There is intimal thickening but no significant atherosclerotic plaque noted in the right internal carotid artery. There is intimal thickening but no significant atherosclerotic plaque noted in the right external carotid artery. Antegrade flow is noted in the right vertebral artery. Left Extracranial There is intimal thickening but no significant atherosclerotic plaque noted in the left common carotid artery. There is heterogeneous, smooth atherosclerotic plaque noted in the left internal carotid artery. There is intimal thickening but no significant atherosclerotic plaque noted in the left external carotid artery. Antegrade flow is noted in the (more content not included)... Normal [facility] Carotid Duplex Ultrasoundon 08-29-2021 Carotid Duplex Ultrasound [facility] [address] [place] [address] Carotid Duplex Ultrasound 08/29/21 1306 MR#: [id number] Acct: [id number] Name: ALFRED CASTRO Rep #: [id number] : 1960 60 From: Fredi Arce MD Attending Dr: Dr. Jensen Griffith MD Status: REG CLI Ordering Dr: Jensen Griffith MD Date: 08/29/21 Location: [facility]S Sex: M C Admitted: Reason For Study: Visual disturbance Rt. Velocities/BP Lt. Velocities/BP Prox CCA 94.3/25.2 cm/sec. Prox CCA 122.9/26.1 cm/sec. Mid CCA 98.2/27.8 cm/sec. Mid CCA 121.1/27.9 cm/sec. Dist CCA 90.4/26.5 cm/sec. Dist CCA 121.1/37.1 cm/sec. Prox ICA 90/29.8 cm/sec. Prox ICA 84.6/29.8 cm/sec. Mid ICA 121.1/42.6 cm/sec. Mid ICA 99.2/35.3 cm/sec. Dist ICA 130.2/42.6 cm/sec. Dist ICA 113.8/42.6 cm/sec. Rt. ICA/CCA = 1.38. Lt. ICA/CCA = 0.94. Prox ECA 169.6/22.6 cm/sec. Prox ECA 128.4/22.5 cm/sec. Rt. Vert. 64.5/17 cm/sec. Lt. Vert. 43.2/12.4 cm/sec. Right Extracranial There is intimal thickening but no significant atherosclerotic plaque noted in the right common carotid artery. There is intimal thickening but no significant atherosclerotic plaque noted in the right internal carotid artery. There is intimal thickening but no significant atherosclerotic plaque noted in the right external carotid artery. Antegrade flow is noted in the right vertebral artery. Left Extracranial There is intimal thickening but no significant atherosclerotic plaque noted in the left common carotid artery. There is heterogeneous, smooth atherosclerotic plaque noted in the left internal carotid artery. There is intimal thickening but no significant atherosclerotic plaque noted in the left external carotid artery. Antegrade flow is noted in the left vertebral artery. Procedure Carotid Duplex [id number]. This is a Carotid Duplex examination using B-mode, color flow and specral Doppler. Exam performed in department. VL/Carotid Duplex Ultrasound Interpretation Summary Intimal thickening at the proximal right internal carotid artery with slightly increased velocity in the mid and distal internal carotid artery though not associated with any visible plaque. Technically consistent with 50 to 69% stenosis. Less than 50% stenosis right external carotid artery Heterogenous plaque at the proximal left internal carotid artery with less than 50% stenosis Less than 50% stenosis left external carotid artery Patent and antegrade vertebral arteries bilaterally _ Ordering Physician: Jensen Griffith Referring Physician: Deja Jimenez Performed By: Jenni Gould RVT 08/29/21 1513 Date Fredi Arce MD CC: Dr. Cosme Jimenez MD; Dr. Jensen Griffith MD Date Dictated: 08/29/21 1306 Date Transcribed: 08/29/21 1513 Closer On: Signed Normal [facility] Emergency Department Summary on 02-25-2021 Emergency Department Summary [facility] Medical Records Department [address] [place] [address] Emergency Department Summary 02/25/21 MR#: [id number] Acct: [id number] Name: ALFRED CASTRO Rep #: [id number] : 1960 60 From: Malik Latif MD PCP: Dr. Cosme Jimenez MD Status:REG ER Location: ED HPI History of Present Illness Chief Complaint: Fall Narrative Narrative: Patient presenting for evaluation after a fall down stairs. Patient reports that 3 days ago he suffered a mechanical fall down a full flight of stairs. He states that he tumbled down around 14 stairs denies hitting his head or loss of consciousness he is not on any sort of anticoagulants. Patient reports that he was pretty banged up, has some bruising on his left foot but has been able to ambulate, but has noticed continuous pain over his right posterior ribs that is worse with palpation movement and deep breathing. Patient denies any hematuria. Denies any hemoptysis. Pain is sharp. Better with rest. Review of systems otherwise negative. PFSH PFSH Medical History no medical history Home Medications lidocaine [Lidoderm] 1 patch TOPICAL DAILY #15 ea 02/25/21 [Rx Last Taken Unknown] Allergy/AdvReac Type Severity Reaction Status Date / Time No Known Allergies Allergy Verified 02/25/21 10:31 Social History Smoking Status: Never smoker ROS ROS ED Constitutional Constitutional ED: Denies chills or fever(s) ENT ENT ED: Denies rhinorrhea Cardiovascular Cardiovascular: Denies chest pain Respiratory/Chest Respiratory/Chest: Reports other Details: Right posterior rib pain Gastrointestinal Gastrointestinal: Denies abdominal pain, diarrhea, nausea or vomiting Genitourinary Genitourinary ED: Denies dysuria or hematuria Musculoskeletal Musculoskeletal: Reports other Details: Left foot pain Integumentary Denies rash Neurologic Neurologic: Denies paresthesias or weakness Psychiatric Psychiatric: Denies depression Endocrine Endocrinology: Denies fatigue Allergic/Immunologic Allergic/Immunologic ED: Denies urticaria EXAM Physical Exam Const Vital Signs: 02/25/21 10:29 02/25/21 10:34 Temperature 97.1 F L Temperature Source Temporal Pulse Rate 94 Respiratory Rate 18 Respiratory Effort Normal Non-Labored Blood Pressure 164/92 H Blood Pressure Mean 116 Pulse Ox 97 Oxygen Delivery Method Room Air Room Air Positive well nourished and well developed Constitutional Narrative: Airway patent, breath sounds equal bilateral, 2+ radial pulses bilaterally symmetric GCS 15 out of 15. General Appearance ED: well developed and NAD HEENT Reports moist mucous membranes Negative for trauma or tenderness Eyes EOMs intact bilaterally Neck no lymphadenopathy, supple and no JVD Neck Narrative: No midline tenderness is noted, no step-offs Chest Wall Chest Narrative: Right posterior chest does have some bruising, there is tenderness to palpation over the inferior portion of the thoracic wall. No signs of abnormal chest excursion no crepitus no evidence of flail chest. Resp normal respiratory effort and clear to auscultation bilaterally Cardio regular rate, regular rhythm, no murmurs and peripheral pulses 2+ throughout GI normal to inspection, nondistended, normoactive bowel sounds, non-tender and no masses Palpation: soft Back/Spine normal to inspection Extremity Extremity Narrative: Bruising noted over the patient's fourth and fifth toes on the left foot, normal range of motion of the toes and foot, no pain of the ankle. Normal distal sensation and pulses. Neuro oriented x3 and no sensory deficits noted Sensorium / Orientation: alert Motor Exam: strength 5/5 throughout Psych mental status grossly normal Skin no rashes or lesions noted MDM MDM MDM Narrative Medical decision making narrative: Patient presented secondary to a fall. He does have some bruising his foot but is easily able to bear weight, no radiographs ordered. Radiographs of the ribs were obtained and per my personal review as well as radiology are noted to be negative. Patient at this point likely has rib contusions he will be provided with a incentive spirometer. Patient was educated on signs symptoms which to return. To be discharged with a course of lidocaine patches. Patient was discharged in stable condition. Radiography Diagnostic Testing: Clinical Impression(s) from Imaging Studies Ribs w/Chest X-Ray 02/25/21 10:55 IMPRESSION: No acute abnormality identified. at 1111 Reported and signed by: Jeanie Campbell MD Electronically Signed: Jeanie Campbell MD at 11:10 EST Tel , Service support [phone] (more content not included)... Normal [facility] Ribs Uni Min 3V w/PA Cheston 02-25-2021 Ribs Uni Min 3V w/PA Chest [facility] [address] [place] [address] Ribs Uni Min 3V w/PA Chest MR#: [id number] Acct: [id number] Name: ALFRED CASTRO Rep #: [id number] : 1960 M 60 From: Jeanie chapman MD PCP: Dr. Cosme Jimenez MD Status: REG ER Study: Ribs Uni Min 3V w/PA Chest Date of Exam: 02/25 Exam# [id number] Ordering Dr: Malik Latif MD HISTORY: fall, pain right ribs and lower back. TECHNIQUE: XR Ribs Unilateral W/ PA Chest Min 3 Views. # of images incl. paperwork: 5. COMPARISON: 06/27/2020. FINDINGS: CARDIOMEDIASTINAL BORDERS: Cardiac silhouette not enlarged.Mediastinal contour unremarkable. LUNGS: Radiographically clear. PLEURA: No pleural effusion or pneumothorax. OSSEOUS STRUCTURES: No acute displaced rib fracture. RAD/Ribs Uni Min 3V w/PA Chest IMPRESSION: No acute abnormality identified. at 1111 Reported and signed by: Jeanie Campbell MD Electronically Signed: Jeanie Campbell MD at 11:10 EST Tel , Service support , CC: Dr. Cosme Jimenez MD; Dr. Malik Latif MD Closer On: Signed Normal [facility] HISTORY PHYSICALon 8 HISTORY PHYSICAL HNO ID: [id number] thor: [place] ([place]) VetovitzService: Orthopaedic SurgeryAuthor Type: Physician AssistantType: HANDPFiled: 02/28/2018 7:22 AMNote Text:Sara Paul, [place] [address] [place] [address]Myvz: [phone] ??January 27, 2018??CHIEF COMPLAINT: New Patient (Bilateral CTS - Ref. F. Cebul )?HPI: Mr. Alfred Castro is a 57 year old male who presents with numbnessand tingling in both hands, right worse than left. Pain in the right handcan be 10 out of 10, left is 5 out of 10. He is right-hand dominant. Hedoes a lot of repetitive work, lifting multiple parts many times a day.?ASSESSMENT:G56.03 Bilateral carpal tunnel syndrome (primary encounter diagnosis)?PLAN:clinical exam and nerve conduction exam suggest bilateral carpal tunnel.Severe on the right, moderate on the left.the risks, benefits,alternatives and potential complications were discussed about bothoperative and nonoperative treatment. The patient like to pursuebilateral carpal tunnel surgeries under local anesthetic.?FOLLOW UP INSTRUCTIONS:we will schedule accordingly.?Mr. Alfred Castro was advised as to contrast therapies and/or to takeanalgesics/anti-inflam matories as needed and all contraindications werereviewed.?OBJECTIVE:Mr Ирина Castro is a pleasant 57 year old in no apparent distress.Gen:BP 130/78 Pulse 80 Ht 5' 8" (1.73m) Wt 203 lb (92.1kg) BMI30.87 kg/(m2). nl development, non obese, no deformitiesENT: Normocephalic, normal hearing, moist mucosaCV: Pulses:Radial= 2+ and symmetric, capillary refill < 2 secs, noperipheral edema/varicositiesHeart:RR R, no murmurs or gallops.Lungs: CTAB.Skin: no rash, bruising or lesions. Good turgor.Psych: cooperative and appropriate, alert and oriented x 3, good mood andaffect.Musculoskeletal: Cervical spine has supple range of motion and no tenderness to palpation,Spurling's sign negative. Shoulders and elbows have full range of motion. negative Tinel's over the cubital tunnel, no subluxation of ulnar nerveat the elbow with flexion. negative Tinel's over Guyon's canal.Inspection reveals no thenar atrophy. diminished sensation to light touchin the radial 3 digits on the right, normal on the left. Sensationdiminished in the ulnar 2 digits with out intrinsic atrophy/weakness, onthe right, normal on the left. exquisite Tinel's at the wrist on theright, positive Tinel's on the left, positive carpal tunnel compressiontesting on the right greater than left. No locking or catching of thedigits. No tenderness to palpation or masses noted in the forearm orhand.?IMAGING:electrodia gnostic exam from an outside facility suggests severe carpaltunnel on the right, moderate on the left. No cervical or ulnarneuropathy.??Supporti edith Subjective Information Below:?Past Medical History:PAST?MEDICAL?HISTO RYPAST MEDICAL HISTORYDiagnosis Date- Hyperlipidemia LDL goal <130 10/17/2015- Tobacco abuse 06/12/2012?Past Surgical History:PAST?SURGICAL?HIST ORYPAST SURGICAL HISTORYProcedure Laterality Date- COLONOSCOP W/ OR W/O BRSH SPEC ? 12/31/2016? repeat 10 years- EXTRACTION ERUPTED TOOTH ? ?? [place] teeth?Family History:FAMILY?HISTORYFAMI LY HISTORYProblem Relation Age of Onset- None Mother ?- other (unknown) Father ?- None Sister ??Social History:SOCIAL?HISTORYSoci al History Marital status: Spouse name: Years of education: Number of children:?Social History Main Topics Smoking status: Never Smoker? Smokeless tobacco: Former User Types: Chew Alcohol use: Yes Comment: occassionally Drug use: No Sexual activity: Yes Partners with: Female?Medications:CURRENT ?MEDICATIONSNo current outpatient prescriptions on file.No current facility-administered medications for this visit.Allergies: Patient has no known allergies.??ROS:General (negative for fatigue, malaise, weight loss/gain)HEENT (negative for headache, earache, recent vision changes, sinus pain,sore throat) Respiratory (no recent shortness of breath, hemoptysis)CV (negative for chest tightness, palpitations)Musculoskelet al (see HPI)Psych (no depression, anxiety)??REFERRING PHYSICIAN: Mr. Alfred Castro was referred to me forconsultation by the following physician. This consultation note will besent to the following physician by either mail or electronic medicalrecord.?Wade Arce III [id number] [facility] [id number]?This note was partially generated using [employer] voice recognition system,and there may be some incorrect words, spellings, and punctuation thatwere not noted in checking the note before saving.??Sara Paul MD? [facility] NURSING PROGon 02-28-2018 Protein mass conc HNO ID: [id number] thor: Lisa (Rn) Juliano Spenceice: (none)Author Type: Registered NurseType: Nursing Progress NoteFiled: 02/28/2018 12:14 PMNote Text:@ 0950 Pt received to ASCU, via cart, from OR. Pt not sedated - alert ANDoriented - pain free, pleasant AND cooperative with care. Bilateral handdressings clean AND dry - elevated AND ice bags over incisions. Fingers pink,warm, mobile with brisk capillary refill. Blunted sensation to touch dueto block. Side rails up AND call case in reach.@ 0955 @ bedside - pt taking orals.@ 1030 VS stable - physical assess same. Remains pain free. Dischargeinstructions reviewed. Awaiting script from pharmacy.@ 1115 Ambulated to - steady while up.@ 1120 Discharge to home ambulatory - pt received no sedation forprocedure. in attendance. [facility] Protein mass conc HNO ID: [id number] thor: Trish RootRn) Juliano Dillonice: NursingAuthor Type: Registered NurseType: Nursing Progress NoteFiled: 02/28/2018 9:03 AMNote Text:0830 Dr paul at bedside for preop nerve blocks at [id number] Nerve block done by dr paul to left hand Continuous pulse ox on Monitor [id number] Block completed to left [id number] Nerve block done by dr paul to right [id number] Block [id number] Pt tolerated procedures without difficulty [facility] OPERATIVE NOon 02-28-2018 OPERATIVE NO HNO ID: [id number] thor: Sara PaulService: Orthopaedic SurgeryAuthor Type: PhysicianType: Operative ReportFiled: 02/28/2018 9:59 AMNote Text:OPERATIVE/PROCEDURE REPORTLOG ID: [id number]/PROCEDURE DATE: 02/28/2018INCISION/PROCEDU RE START TIME: 9:08 AMINCISION CLOSE/PROCEDURE END TIME: 9:44 AMSURGEON(S)/PROCEDURALIST (S) AND BEARINGIZER(S):Surgeon(s) and Role: * Sara Paul - PrimaryPhysician Sign Language Translator: Lindsey Henry) MichaelRegistered Nurse Laborer Sawmill: Daisy Bridges) YESSICA Davis 1: Sara Paul M.D.OPERATION: Bilateral carpal tunnel release, open.ANESTHESIA:local.PREO PERATIVE DIAGNOSIS: Bilateral carpal tunnel syndrome.POSTOPERATIVE DIAGNOSIS: Bilateral carpal tunnel syndrome.OPERATIVE INDICATIONS: This is a pleasant 57 year old male who hadworsening, numbness, and tingling. His electrodiagnostic showed Moderateon the Left, Severe on the right, carpal tunnel syndrome. He exhaustedconservative management and in the office, we discussed the risks,benefits, alternatives, and potential complications involving carpaltunnel release and he wished to pursue surgical intervention.OPERATIVE FINDINGS: Consistent with postoperative diagnosis.?Procedure Details:OPERATIVE PROCEDURE: On 02/28/2018, the patient was clearly identified inthe preoperative area and marked accordingly on the right and left palmsby myself. He was given bilateral carpal tunnel blocks to each side [id number] 1% lidocaine with 1:100, 000 epi, each. Once these were in effect.Patient was taken to the operative suite and placed in the supine positionwith an armboard on the right and left. All other bony landmarks wereappropriately padded in standard fashion. The left arm was then, firststerilely prepped and draped in standard fashion. An appropriate time-outwas conducted and all in the room were in agreement, signed consent formwas on the chart. A longitudinal incision was made with in line with thethird web space from 1 cm distal of the wrist crease to Correa's cardinalline. I used Anatoliy Rakes to retract the soft tissues. Bipolarelectrocautery was used for hemostasis. I bluntly dissected down withLittler scissors to distal edge of the transverse carpal ligament until a"flash of fat" was noted. I directly divided distal edge of the transversecarpal ligament with a #15 blade. Attention was then focused on theproximal portion and I used Littler scissors to bluntly dissect off thevolar surface of the transverse carpal ligament. A carpal tunnel andmedian nerve protection guide was slid directly under the ligament fordilation and a second time for appropriate positioning, this was passedfreely without any resistance. Subsequently, I selected a mini meniscotomeBeaver blade and slid this in the protective guide, completely dividingthe transverse carpal ligament. Anatoliy rakes were used to view up the woundto visualize for complete release and a Merrillan elevator was used to palpatefor complete release. Hemostasis was observed. The wound was copiouslyirrigated with normal saline and I closed with 3-0 nylons in horizontalmattress fashion for a total of 3. Xeroform gauze, sterile 4 x 4 gauze,sterile, Webril padding was applied.?I then turned my focused to the right upper extremity. The exact samesteps in sequential fashion were carried out on the right side, withoutthe need for a tourniquet, as was outlined previously on the left above.At the completion of the procedure, the median nerve was noted to becompletely released both visually and with palpation of the transectedTransverse carpal ligament. At one point, with some slight motion of thepatient my 15 blade scored the epineurium of the median nerve. This wassuperficial and did not enter deeper than 1 mm to the nerve. It waslongitudinal. Nerve was intact and certainly in continuity. He did feela quick, unsustained burning feeling in the middle finger, to note duringfollow-up. The wound was copiously irrigated. Closure with againcompleted with 3-0 nylons in horizontal mattress fashion. Xeroform gauze,sterile 4 x 4 gauze, webril padding and a Bias roll was used for finalbandage for each hand. There were no complications during the procedures.The patient was safely awoken and transferred to the Postanesthetic CareUnit in stable condition.??Pre-Op/Pre-Pro cedure Diagnosis: Bilateral carpal tunnel syndrome.?Post-Op/Post-Pro cedure Diagnosis: Same?SIGNATURE: Sara Paul MD PATIENT NAME: Alfred CastroDATE: February 28, 2018 : 9:56 AM PAGER/CONTACT #: [facility] PT EDon 02-28-2018 PT ED HNO ID: [id number] thor: Lisa RootRn) BRYCE Spenceervice: (none)Author Type: Registered NurseType: Patient EducationFiled: 02/28/2018 12:15 PMNote Text:INSTRUCTION PROVIDED TO: Patient and family memberMETHOD OF INSTRUCTION: Verbal instructionPATIENT / FAMILY RESPONSE: Verbalizes understanding of: POST-PROCEDUREINSTRUCTIONS -Correct actions to take to reduce post procedurecomplicationsFOLL OW-UP PLAN: Patient instructed to call with any further issuesSUPPLEMENTAL MATERIAL: NoneREFERRAL (RECOMMENDATION): NoneElectronically Signed By: Lisa Spence RN In Department: [facility] PT ED HNO ID: [id number] thor: BRYCE Ryan Rnervice: NursingAuthor Type: Registered NurseType: Patient EducationFiled: 02/28/2018 6:50 AMNote Text:PRE OP LEARNING ASSESSMENTPROCEDURE/SURGER Y: bilateral carpal tunnel surgeryREADINESS TO LEARNCOGNITIVE ABILITY: Alert and orientedMOTIVATION TO LEARN: InterestedFAMILY SUPPORT: High - Very involved in pt carePATIENT LEARNS BEST BY: Verbal InstructionFACTORS AFFECTING LEARNING: NonePHYSICAL LIMITATIONS AFFECTING LEARNING: NoneElectronically Signed By: Trish Dillon RN In Department: [facility] CN[facility] Letter TextDeceer 2017Alfred Kiming4269 [facility] 225Gl[facility] [address]Jzmj Mr. Castro,Thank you for choosing [facility] for your medical care. To help reducehealthcare costs, it is important for us to collect co-payments at the timeof service.We are sorry we missed you when you were here on 02/28/2018.According to your insurance company, you are responsible for a co-payment of$50.00.Please mail your check or money order, payable to [facility] along withthe stub below, in the enclosed envelope.If you would like to pay with your credit card, please call [phone] for assistanc.Again, thank you for choosing [facility].Sincerely,Francisca Elliott FcPatient Financial AdvocatePlease detach and return in the enclosed envelope. P ay online at [email or web address] Name: Alfred CastroAccount Number: [id number] Number: [id number] of Service: 02/28/2018Co-Pay Due: 50.00Amount Enclosed: $ .__Please make checks payable to [facility]. [facility] HOSPon 01-27-2018 HOSP Patient:Constantin Castro AMRN: Height:5' 8"(1.727 m)Weight:No patient weight recorded within the last 30 days.Outpatient Medications as of 02/28/18:Patient has no current outpatient medications.Admission/Clin ic Administered Medications as of 02/28/18:lidocaine-EPINEPH rine 2 %-1:100,000 10 mL injectionlidocaine-EPINEPH rine 2 %-1:100,000 10 mL injectionProblem List:Overweight (BMI 25.0-29.9) [E66.3]Hyperlipidemia LDL goal <130 [E78.5]Metatarsalgia of right foot [M77.41]Cervical strain, acute, sequela [S16.1XXS]Cervical radiculopathy [M54.12]Carpal tunnel syndrome, right [G56.01]Bilateral carpal tunnel syndrome [G56.03]Allergies:No Known AllergiesDate Verified:02/28/18Lab ValuesNo results within the last 30 days for the following basenames: K,HCTProgress Notes ([facility]):Lynda Parekh, RN, RN 02/12/2018 2:40 PM SignedType of form: FMLAForm received via walk in- Forms are for - Samantha Castro- [birth year] to be offwork to take patient to and from surgery and other doctor appts.When form is completed, call patient when forms completed.Form has been forwarded to nurses box.Harry To Ranulfo Jacqueline Ma 02/18/2018 8:51 AM SignedPaperwork has been completed and waiting for physician signature.Sarahi Winchester Jacqueline Amparo 02/19/2018 2:09 PM SignedPaperwork completed and left a message for spouse to see if she wanted faxed orif she was going to pickle water pump operator.Sarahi Winchester Jacqueline Amparo 02/19/2018 2:40 PM SignedSpouse called back and will stop in to pickle water pump operator tomorrow. Placed at Orthopedicoffice lead front desk agent. Copy sent for scanning. [facility] Encounters Encounter Date Encounter Type Care Provider Facility Start: 02-27-2024 End: 02-27-2024 Telephone encounter Deja Jimenez MD Work Phone: [facility] Comment on above: Patient Update Start: 09-14-2021 ambulatory Cosme Jimenez Faci lity:[facility] Start: 09-13-2021 End: 09-13-2021 ambulatory Fredi Cebul Facility:[facility] Start: 08-29-2021 End: [facility] Start: 08-29-2021 Non-patient / Non-visit Dr. Andrea Jimenez Work Phone: [facility] Start: 08-29-2021 End: 08-29-[address] Cosme Jimenez Work Phone: [facility] Start: 06-06-2021 End: 06-06-2021 Nursing evaluation of patient and report Mi Nurse Work Phone: [facility] Comment on above: Need for vaccination (Primary Dx) Start: 02-25-2021 End: 02-25-2021 Emergency department patient visit Malik Latif Facility:[facility] Start: 02-28-2018 End: 02-28-2018 Patient encounter procedure [facility] Procedures Date Procedure Procedure Detail Performing Clinician Start: 10-29-2020 Lipid 1996 panel - S ulis or Plasma Deja Jimenez MD Work Phone: Start: 10-23-2020 Adult depression screening assessment Mi Nurse Work Phone: Start: 12-31-2016 Colonoscopy Mi Nurse Work Phone: Plan of Treatment Date Care Activity Detail Author Start: 12-25-2035 RSV Vaccine (1 - 1-d ose 75+ series) RSV Vaccine (1 - 1-dose 75+ series) [facility] Start: 12-31-2026 Colonoscopy COLONOSCOPY [facility] Start: 12-31-2026 COLORECTAL CANCER SCREENING COLORECTAL CANCER SCREENING [facility] Start: 12-31-2026 Screening for malign ant neoplasm of colon [facility] Start: 10-29-2025 Lipid panel Lipid Screening [facility] Start: 10-29-2025 LIPID SCREEN LIPID SCREEN [facility] Start: 02-01-2024 PROSTATE CANCER SCRE ENING DISCUSSION PROSTATE CANCER SCREENING DISCUSSION [facility] Start: 02-01-2024 Prostate specific an tigen measurement Prostate Cancer Screening Discussion [facility] Start: 11-10-2023 Covid-19 Vaccine () Covid-19 Vaccine () [facility] Start: 10-30-2023 DIABETES SCREEN DIABETES SCREEN [facility] Start: 10-30-2023 Diabetes Screening Diabetes Screenin g [facility] Start: 10-25-2021 COVID-19 VACCINE (1) COVID-19 VACCIN E (1) [facility] Comment on above: Postponed from 12/24 (Declined at this time) Start: 10-23-2021 Adult depression screening assessment DEPRESSION SCREENING [facility] Start: 07-16-2021 Urine microalbumin profile [facility] Start: 08-10-2014 FECAL OCCULT BLOOD FECAL OCCULT BLOO D [facility] Start: 08-10-2014 Screening for malign ant neoplasm of colon Fecal Occult Blood [facility] Start: 2010 Pneumococcal Vaccine : 50+ (1 of 1 - PCV) Pneumococcal Vaccine: 50+ (1 of 1 - PCV) [facility] Start: 2005 COLOGUARD (FIT-DNA) COLOGUARD (FIT-D NA) [facility] Start: [address] COLONOGRAPHY [facility] Start: 2005 Screening for malign ant neoplasm of colon [facility] Start: 2005 SIGMOIDOSCOPY SIGMOIDOSCOPY [facility] Start: 1978 Anxiety Screening Anxiety Screening [facility] Start: 1978 Depression Screening Depression Scre ening [facility] Start: 1978 HIV SCREENING HIV SCREENING [facility] Start: 1978 HIV screening HIV Screening [facility] Immunizations Immunization Date Immunization Notes Care Provider Fa cility 06-06-2021 zoster vaccine recombinant Nd Nurse Work Phone: [facility] Work Phone: 03-13-2021 zoster vaccine recombinant Nd Nurse Work Phone: [facility] Work Phone: 07-17-2011 tetanus toxoid, redu montez diphtheria toxoid, and acellular pertussis vaccine, adsorbed Nd Nurse Work Phone: [facility] Payers Date Payer Category Payer Self-pay [id number] 2021 Unknown [id number] 2012 Unknown [employer] BLUE CARD PPO OOS [id number] 2012-Present [phone] [address] [place] [address] PPO [id number] 2012 Unknown [employer] BLUE CARD PPO OOS [id number] 2012-Present [phone] [address] [place] [address] PPO [id number] Unknown [id number] Unknown [id number] Unknown [id number] Unknown [id number] Unknown [id number] Social History Date Type Detail Facility Start: 08-05-2013 End: 10-17-2015 Tobacco smoking status NHIS Never smoked tobacco [facility] History of tobacco use Cigarette Smoker C [facility] Start: 08-05-2013 End: 02-13-2020 Cigarettes smoked current (pack per day) - Reported 0.3 [facility] Start: 08-05-2013 End: 10-17-2015 Tobacco use and exposure Former smokeless tobacco user [facility] History of tobacco use Chews Tobacco [facility] Start: 10-25-2020 Alcohol intake Current drinker of alcohol (finding) [facility] Start: 10-23-2020 History SDOH Alcohol Frequency 3 [facility] Start: 10-23-2020 History SDOH Alcohol Std Drinks 2 [facility] Start: 10-25-2020 History SDOH Alcohol Comment 4-5 drinks on the weekend [facility] Start: 10-23-2020 History SDOH Social Connections Phone 5 [facility] Start: 10-23-2020 History SDOH Social Connections Orthodox 1 [facility] Start: 10-23-2020 History SDOH Physical Activity MPS 4 [facility] Start: 10-23-2020 Education 14 [facility] Start: 1960 Sex Assigned At Male [facility] Start: 05-13-2021 End: 05-23-2021 Exposure to SARS-CoV-2 (event) Not sure [facility] Start: 02-25-2021 Tobacco smoking status NHIS Unknown if ever smoked [facility] Work Phone: Start: 06-27-[address] [facility] Work Phone: Start: 06-27-[address] [facility] Work Phone: Start: 06-27-2020 Spouse/ Significant Other [facility] Work Phone: Start: 02-13-2020 End: 10-23-2020 Social connection and isolation panel [facility] Do you belong to any clubs or organizations such as samaritan groups, unions, fraternal or athletic groups, or school groups? No [facility] Are you now , , , , never or living with a partner? [facility] How often to you hav e a drink containing alcohol? 2-4 times a month [facility] How many standard dr inks containing alcohol do you have on a typical day? 3 or 4 [facility] How often do you hav e 6 or more drinks on 1 occasion? Monthly [facility] How hard is it for y ou to pay for the very basics like food, housing, medical care, and heating Not hard at all [facility] Do you feel stress - tense, restless, nervous, or anxious, or unable to sleep at night because your mind is troubled all the time - these days [OSQ] Not at all [facility] (I/We) worried [facility] (my/our) food would run out before (I/we) got money to buy more. Never true [facility] Start: 03-07-2021 Gender identity Identifies as male gender (finding) [facility] Start: 03-07-2021 Sexual orientation Heterosexual (finding) [facility] Telephone encounter Note 02-27-2024 Telephone Encounter - Deja Jimenez MD - 02/27/2024 12:34 PM EST Note Date & Type Note Facility 02-27-2024 Telephone encount er Note Patient was in today with for her appointment with Adela Manrique and was asking about re-establishing with me and getting a physical. He stated he did not want to see me and only wanted to see Adela in the future because he was upset at his last OV 10/2020 that we discussed COVID vaccination and he felt I was forcing him to get it, though he refused vaccination and we did not administer the vaccine per his wishes. I discussed with him that I am not taking new patients at this time and if he is not wanting to see me anyway, he would be better suited to find a new provider. Adela Manrique does not have her own patient panel and he would not be able to solely see her. He stated his is considering transferring care as well, but she did not agree to this while I was in the room. Removed myself as PCP. [facility] Note 02-27-2024 Telephone Encounter - Deja Jimenez MD - 02/27/2024 12:34 PM EST Note Date & Type Note Facility 02-27-2024 Miscellaneous Notes Formattin g of this note might be different from the original. Patient was in today with for her appointment with Adela Manrique and was asking about re-establishing with me and getting a physical. He stated he did not want to see me and only wanted to see Adela in the future because he was upset at his last OV 10/2020 that we discussed COVID vaccination and he felt I was forcing him to get it, though he refused vaccination and we did not administer the vaccine per his wishes. I discussed with him that I am not taking new patients at this time and if he is not wanting to see me anyway, he would be better suited to find a new provider. Adela Manrique does not have her own patient panel and he would not be able to solely see her. He stated his is considering transferring care as well, but she did not agree to this while I was in the room. Removed myself as PCP. documented in this encounter [facility] History of Present illness Narrative 06-06-2021 Isabel Clark LPN - 06/06/2021 3:42 PM EDT Note Date & Type Note Facility 06-06-2021 History of Presen t illness Narrative Patient presents for Shingrix vaccine. Denies any problems at this time. Tolerated injection well. Isabel Clark LPN documented in this encounter [facility] History of Past illness Narrative 01-27-2018 Note Date & Type Note Facility 01-27-2018 History of Past i llness Narrative Problem Noted Date Resolved Date Bilateral carpal tunnel syndrome 01/27/2018 11/02/2019 Overview: Added automatically from request for surgery [id number] Metatarsalgia of right foot 12/31/201710/10 Cervical strain, acute, sequela 12/31/2017 11/02/2019 Cervical radiculopathy 12/31/2017 0 Carpal tunnel syndrome, right 12/31/2017 Plantar fasciitis of right foot 06/12/2012 08/09/2014 Achilles tendinitis 06/12/2012 08/09/2014 Tobacco abuse 06/12/2012 10/17/2015 documented as of this encounter (statuses as of 06/06/2021) [facility] Evaluation note Note Date & Type Note Facility Evaluation note Diagnosis Need for vaccination- Primary Need for prophylactic vaccination and inoculation against unspecified single disease documented in this encounter [facility] Evaluation note Note Date & Type Note Facility Evaluation note No assessment information availa [facility] Work Phone: Summary Purpose Family History No Family History Records FoundNo Family History Records FoundNo Family History Records Found Advance Directives No Advanced Directives Records FoundDocuments on File Type Date Recorded Patient Rubber Trimmer Expl anation Advance Directive(s) 02/28/2018 7:13 AM Advance Directive(s) 02/04/2018 5:55 PM Advance Directive(s) 12/31/2016 2:24 PM Advance Directive Response Recorded Date/ Time Living Will No February 25 11:37am Power of Door Trimmer No February 25, 2021 11:37am Chief Complaint and Reason for Visit Chief Complaint TRANSIENT VISUAL LOS S RIGHT EYE Additional Source Comments (unrecognized sect ion and content) No Status Records FoundNo Status Records FoundNo Status Records Found INFORMATION SOURCE (unrecogn ized section and content) DATE CREATED AUTHOR 03/03/2018 [facility] DATE CREATED AUTHOR AUTHOR'S ORGANIZ ATION 02/17/2022 [facility] DATE CREATED AUTHOR AUTHOR'S ORGANIZ ATION 03/01/2024 [facility] Source Comments (unrecognize d section and content) In the event this informatio n is protected by the Federal Confidentiality of Alcohol and Drug Abuse Patient Records regulations: The Federal rules restrict any use of the information to criminally investigate or prosecute any alcohol or drug abuse patient.[facility] the event this information is protected by the Federal Confidentiality of Alcohol and Drug Abuse Patient Records regulations: The Federal rules restrict any use of the information to criminally investigate or prosecute any alcohol or drug abuse patient.[facility] Reason for Visit (unrecogniz ed section and content) Reason Comments Imm/Inj Reason Comments Patient Update Care Teams (unrecognized sec tion and content) Clinical Specialist Vascular Relationship Specialty Start Date End Date Deja Jimenez MD [address] [place] [address] PCP - General Family Practice 12/30/20 Clinical Specialist Vascular Relationship Specialty Start Date End Date Adela Manrique APRN.CNP [address] [place] [address] [facility] 02/15/24 Goals (unrecognized section and content) Goals may be documented in a n alternate section FOR RECORDS PERTAINING TO PATIENTS WHO ARE [...] BE BASED ON THE PRIMARY CLINICAL RECORDS. [employer] [facility]. provides no warranty or guarantee of the accuracy or completeness of information in this document.
[2024-12-12 11:10] LABS: Cholesterol 199 mg/dL (<=200); Low Density Lipoprotein Calc. 129 mg/dL; PSA,Total- Diagnostic 2.72 ng/mL (0.00-4.00); Triglycerides 91 mg/dL; Very Low Density Lipoprotein 18 mg/dL (5-40); cholesterol:hdl ratio screen 3.84
[2024-12-12 11:17] LABS: AST(SGOT) 24 U/L (<=37); Alanine Aminotransfer ALT/SGPT 23 U/L (<=46); Albumin, Serum 4.3 g/dL (3.4-4.8); Alkaline Phosphatase 70 U/L (40-129); Anion Gap 10 (5-15); BUN 13 mg/dL (4-19); BUN/Creat Ratio 14.1 RATIO (10-20); Calcium,Total 9.5 mg/dL (7.6-11.0); Carbon Dioxide 25.2 mmol/L (21.0-32.0); Chloride 106 mmol/L (98-108); Globulin 2.5 g/dL (2.2-4.2); Glucose 102 mg/dL (70-99); Potassium 4.5 mmol/L (3.3-5.1)
== END | disposition home or self-care (01) ==
LOC: LAB 09:24
PROVIDERS: PCP Family Medicine; Referring Provider Family Medicine; Visit Provider Family Medicine
DX: Z00.00 Encounter for general adult medical examination without abnormal findings (principal)
CPT/HCPCS: 36415; 80053; 80061; 84153